=== PATIENT | male | born 1975 | race Caucasian/White ===

== ENCOUNTER → 2016-09-08 | Outpatient (CLI) | payer BC ==
[~2016-09-08] MED LIST: ALEVE PO; ANTIDIARRHEAL2 MG PO; BLEPH-105 M1 OP; CYMBALTA PO; DEPO-TESTOT200 MG/ML IM; KENALOG IN ORABA5 GM TOP; LEVSIN0.125 M2 SL; MULTI-VITAMIN PO; NAPROXEN PO; NORCO 10/3251 TAB PO; [UNRECOGNIZED DRUG - OTHER] PO
[2016-09-08 16:25] LABS: ALBUMIN SERUM 4.5 g/dL (3.5-5.0); BILIRUBIN,TOTAL 0.7 mg/dL (0.2-2.0); BUN/CREATININE RATIO 12.72; CREATININE SERUM 1.1 mg/dL (0.6-1.4); GLOM FILT RATE Estimated 83.5 mL/min (>60); PROTEIN TOTAL SERUM 7.7 g/dL (6.0-8.3)
[2016-09-08 16:30] LABS: PROSTATE SPECIFIC AG SCR 0.55 ng/ml (0.0-4.0)
== END | disposition home or self-care (01) ==
LOC: CLAB 15:27
PROVIDERS: Urology
DX: E29.1 Testicular hypofunction (principal); N40.0 Benign prostatic hyperplasia without lower urinary tract symptoms; N53.12 Painful ejaculation; R31.9 Hematuria, unspecified
CPT/HCPCS: 36415; 80053; G0103